=== PATIENT | male | born 1985 | race Caucasian/White ===

== ENCOUNTER 2019-03-13 15:03 | Inpatient (IN) | payer OTHER ==
[2019-03-13 16:35] VITALS: BMI 22.4
--- NOTE | 2019-03-13 18:00 | HP ---
COWS - Scale Resting Pulse: 2= NM 101-120 Sweatin= Chills/Flushing Restless Observation: 3= Extraneous Movement Pupil Size: 0= Normal to Room Light Bone or Joint Aches: 0= None Runny Nose/ Eye Tearin= Nasal Congestion GI Upset > 30mins: 1= Stomach Cramp Tremor Observation: 0= None Yawning Observation: 1= 1-2x During Session Anxiety or Irritability: 2=Irritable/Anxious Goose Flesh Skin: 3=Piloerection COWS Score: 14 CIWA Score Nausea/Vomitin-Mild Nausea/No Vomiting Muscle Tremors: None Anxiety: 2 Agitation: 2 Paroxysmal Sweats: 1-Minimal Palms Moist Orientation: 0-Oriented Tacttile Disturbances: 0-None Auditory Disturbances: 0-None Visual Disturbances: 0-None Headache: 7-Extremely Severe CIWA-Ar Total Score: 13 - Admission Criteria [facility]ASAS Guidelines: Admission for Medically Managed Detox: Requires at least one of the followin. CIWA greater than 12 2. Seizures within the past 24 hours 3. Delirium tremens within the past 24 hours 4. Hallucinations within the past 24 hours 5. Acute intervention needed for co occurring medical disorder 6. Acute intervention needed for co occurring psychiatric disorder 7. Severe withdrawal that cannot be handled at a lower level of care (continued vomiting, continued diarrhea, abnormal vital signs) requiring intravenous medication and/or fluids 8. Patient presents the following: None of the above (pt overdosed on heroin requiring narcan about 12 hours ago.) Admission Criteria Met: Admission criteria not met Admission ROS [facility] Chief Complaint: heroin detox 33 yo with no medical problems and on no meds, long h/o of heroin use- went into detox last year and since then using heroin occasionally, states that yesterday he used 2 bags of IV heroin- found by father with needle in his arm- narcan administered by EMS and went to [facility] ER. Pt was referred here for further management. Heroin- 2 bags yesterday, IV. Pt states does not use heroin regularly alcohol- 2-3 beers 16oz a day, no h/o seizures, DT's IStop- no meds Utox: MOP Allergies/Adverse Reactions: Allergies Allergy/AdvReac Type Severity Reaction Status Date / Time No Known Drug Allergies Allergy Verified 03/13/19 16:25 - Ebola screening Have you traveled outside of the country in the last 21 days: No Have you had contact with anyone from an Ebola affected area: No Patient History - Patient Medical History Hx Anemia: Yes - Patient Surgical History Past Surgical History: No - PPD History Previous Implant?: No Documented Results: Negative w/o proof - Smoking Cessation Smoking history: Current every day smoker Have you smoked in the past 12 months: Yes Aproximately how many cigarettes per day: 10 Hx Chewing Tobacco Use: No Initiated information on smoking cessation: Yes 'Breaking Loose' booklet given: 03/13/19 - Substance & Tx. History Hx Alcohol Use: Yes Hx Substance Use: Yes Substance Use Type: Heroin - Substances abused Alcohol Other (specify): Beer, Rum Substance route: Oral Frequency: 3-6 times per week Amount used: Beer 3 bottles, Rum 2 shots Age of first use: 13 Date of last use: 03/12/19 Family Disease History - Family Disease History Family Disease History: Other: Mother (crack cocaine addiction) Admission Physical Exam S - Vital Signs Vital Signs: Vital Signs - 24 hr 03/13/19 16:27 Temperature 99.9 F H Pulse Rate 112 H Respiratory 18 Rate Blood Pressure 134/95 - Physical General Appearance: Yes: Within Normal Limits HEENTM: Yes: Within Normal Limits Respiratory: Yes: Within Normal Limits Neck: Yes: Within Normal Limits Cardiology: Yes: Within Normal Limits, Regular Rate Abdominal: Yes: Within Normal Limits Genitourinary: Yes: Within Normal Limits Back: Yes: Within Normal Limits Musculoskeletal: Yes: Within Normal Limits Extremities: Yes: Within Normal Limits Neurological: Yes: Within Normal Limits Integumentary: Yes: Within Normal Limits, Track Sarkar (3 fresh needle sticks) Lymphatic: Yes: Within Normal Limits - Diagnostic (1) Opioid use disorder Current Visit: Yes Status: Acute (2) Nicotine use disorder Current Visit: Yes Status: Acute Urine Drug Screen - Test Device Lot number: [id number] Expiration date: 10/11/20 - Control Is test valid?: Yes - Results Drug screen NEGATIVE: No Urine drug screen results: MOP-Opiates Inpatient Rehab Admission - Rehab Decision to Admit Inpatient rehab admission?: No
[2019-03-13] MEDS ORDERED: hydrOXYzine PAMOATE 25 MG CAPSULE (FP) PO PRN (18:10)
[2019-03-13] MEDS ORDERED: MAGNESIUM HYDROX 2400MG/30ML ORAL SUSPENSION 30 ML CUP PO PRN (18:10)
[2019-03-13] MEDS ORDERED: METHOCARBAMOL 500 MG TABLET PO PRN (18:10)
[2019-03-13] MEDS ORDERED: MENTHOL/PHENOL 1 EACH UD MM PRN (18:10)
[2019-03-13] MEDS ORDERED: MAGNESIUM CITRATE 300 ML BOTTLE PO PRN (18:10)
[2019-03-13] MEDS ORDERED: MAG HYDROX/AL HYDROX/SIMETH 30 ML UNIT-DOSE CUP PO PRN (18:10)
[2019-03-13] MEDS ORDERED: NICOTINE POLACRILEX 4 MG GUM BUC PRN (18:10)
[2019-03-13] MEDS ORDERED: MELATONIN 5 MG TABLETS PO PRN (18:10)
[2019-03-13] MEDS ORDERED: ACETAMINOPHEN 325 MG TABLET (FP) PO PRN ×2 (18:10)
[2019-03-13] MEDS ORDERED: BISMUTH SUBSALICYLATE 524 MG/30 ML UD PO PRN (18:10)
[2019-03-13] MEDS ORDERED: clonazePAM 0.5 MG TABLET PO PRN (18:12)
[2019-03-13] MEDS ORDERED: cloNIDine HCL 0.1 MG TABLET PO PRN (18:12)
[2019-03-13] MEDS ORDERED: PERMETHRIN 5% TOPICAL CREAM 60 GM TUBE TP ONE (18:51)
[2019-03-13] MEDS: chlordiazePOXIDE HCL 10 MG CAPSULE PO PRN (19:40)
[2019-03-13] MEDS: hydrOXYzine HCL 25 MG TABLET (FP) PO PRN (22:09)
[2019-03-13] MEDS: chlordiazePOXIDE HCL 25 MG CAPSULE PO SCH (22:10)
[2019-03-13] MEDS: THIAMINE HCL 100 MG TABLET (FP) PO SCH (22:10)
[2019-03-13 22:58] LABS: EPI CELLS 2.6 /HPF (0-5/HPF); URINE APPEARANCE CLEAR; URINE BACTERIA 3.9 /hpf (NEGATIVE); URINE BILIRUBIN NEGATIVE (NEGATIVE); URINE CASTS 41 /lpf (0-8); URINE COLOR YELLOW; URINE GLUCOSE (UA) 2+ (NEGATIVE); URINE KETONE NEGATIVE (NEGATIVE); URINE LEUK ESTERASE NEGATIVE (NEGATIVE); URINE NITRITE NEGATIVE (NEGATIVE); URINE PROTEIN 1+ (NEGATIVE); URINE RBC 1 /hpf (0-4); URINE UROBILINOGEN 0.2 mg/dL (0.2-1.0); URINE WBC 4 /hpf (0-5)
[2019-03-13] MEDS ORDERED: METHADONE HCL 10 MG TABLET (FOR DETOX USE ONLY) PO ONE (23:00)
[2019-03-14] MEDS: chlordiazePOXIDE HCL 25 MG CAPSULE PO SCH ×2 (05:37→13:51)
[2019-03-14] MEDS ORDERED: METHADONE HCL 5 MG TABLET (FOR DETOX USE ONLY) PO ONE (10:00)
[2019-03-14 10:13] LABS: HEMATOCRIT 36.5 % (35.4-49); HEMOGLOBIN 11.6 GM/dL (11.7-16.9); MCH 21.2 pg (25.7-33.7); MCHC 31.8 g/dl (32.0-35.9); MEAN CELL VOLUME 66.6 fl (80-96); MEAN PLT VOLUME 9.1 fl (7.5-11.1); PLATELET COUNT 217 K/MM3 (134-434); RBC 5.48 M/mm3 (4.00-5.60)
[2019-03-14] MEDS: PRENATAL VITAMINS W/ FOLIC ACID TABLET (FP) PO SCH (10:26)
[2019-03-14] MEDS: chlordiazePOXIDE HCL 10 MG CAPSULE PO PRN (10:26)
[2019-03-14 10:29] LABS: ALBUMIN 3.5 g/dl (3.4-5.0); ALK PHOS 59 U/L (45-117); ANION GAP 4 MMOL/L (8-16); BILIRUBIN,TOTAL 0.6 mg/dL (0.2-1); BLOOD UREA NITROGEN 15 mg/dL (7-18); CHLORIDE 102 mmol/L (98-107); CO2 32 mmol/L (21-32); CREATININE 0.7 mg/dL (0.55-1.3); GLUCOSE,RANDOM 95 mg/dL (74-106); POTASSIUM 3.6 mmol/L (3.5-5.1); SGOT/AST 56 U/L (15-37); SGPT/ALT 90 U/L (13-61); SODIUM 137 mmol/L (136-145); TOT PROT 6.6 g/dl (6.4-8.2)
--- NOTE | 2019-03-14 15:05 | PN ---
[facility] CIWA - CIWA Score Nausea/Vomitin-Mild Nausea/No Vomiting Muscle Tremors: 1-None Visible, but [place] Anxiety: 1-Mildly Anxious Agitation: 1-Slight > Activity Paroxysmal Sweats: 1-Minimal Palms Moist Orientation: 0-Oriented Tacttile Disturbances: 0-None Auditory Disturbances: 0-None Visual Disturbances: 0-None Headache: 0-None Present CIWA-Ar Total Score: 5 S COWS - Scale Resting Pulse: 1= [place] 81-100 Sweatin= No chills or Flushing Restless Observation: 1= Difficult to Sit Still Pupil Size: 1= Pupils >than Normal Bone or Joint Aches: 1= Mild Discomfort Runny Nose/ Eye Tearin= Nasal Congestion GI Upset > 30mins: 0= None Tremor Observation of Outstretched Hands: 0= None Yawning Observation: 0= None Anxiety or Irritability: 1=Feels Anxious/Irritable Goose Flesh Skin: 0=Smooth Skin COWS Score: 6 S Progress Note (SOAP) Subjective: pt states doing well on alcohol/heroin detox protocol day #2, s/p treatment for scabies O: Vital Signs - 24 hr 03/13/19 03/13/19 03/14/19 16:27 21:36 00:46 Temperature 99.9 F H 99.5 F Pulse Rate 112 H 105 H Respiratory 18 16 18 Rate Blood Pressure 134/95 120/89 03/14/19 03/14/19 03/14/19 03:39 06:37 09:20 Temperature 98.6 F 97.3 F L Pulse Rate 75 89 Respiratory 18 18 18 Rate Blood Pressure 124/72 130/86 03/14/19 13:40 Temperature 96.4 F L Pulse Rate 89 Respiratory 18 Rate Blood Pressure 117/70 Laboratory Tests 03/13/19 03/14/19 03/14/19 21:20 07:00 07:00 WBC 11.0 H RBC 5.48 Hgb 11.6 L Hct 36.5 MCV 66.6 L MCH 21.2 L MCHC 31.8 L RDW 17.0 H Plt Count 217 MPV 9.1 Sodium 137 Potassium 3.6 Chloride 102 Carbon Dioxide 32 Anion Gap 4 L BUN 15 Creatinine 0.7 Creat Clearance w eGFR 129.88 Random Glucose 95 Calcium 9.0 Total Bilirubin 0.6 AST 56 H ALT 90 H Alkaline Phosphatase 59 Total Protein 6.6 Albumin 3.5 Urine Color Yellow Urine Appearance Clear Urine pH 5.0 Ur Specific [place] 1.020 Urine Protein 1+ H Urine Glucose (UA) 2+ H Urine Ketones Negative Urine Blood Negative Urine Nitrite Negative Urine Bilirubin Negative Urine Urobilinogen 0.2 Ur Leukocyte Esterase Negative Urine WBC (Auto) 4 Urine RBC (Auto) 1 Urine Casts (Auto) 41 U Pathogenic Cast Auto None U Epithel Cells (Auto) 2.6 U Sm Round Cell (Auto) No Result Required. Urine Crystals (Auto) No Result Required. Urine Bacteria (Auto) 3.9 RPR Titer 03/14/19 07:00 WBC RBC Hgb Hct MCV MCH MCHC RDW Plt Count MPV Sodium Potassium Chloride Carbon Dioxide Anion Gap BUN Creatinine Creat Clearance w eGFR Random Glucose Calcium Total Bilirubin AST ALT Alkaline Phosphatase Total Protein Albumin Urine Color Urine Appearance Urine pH Ur Specific [place] Urine Protein Urine Glucose (UA) Urine Ketones Urine Blood Urine Nitrite Urine Bilirubin Urine Urobilinogen Ur Leukocyte Esterase Urine WBC (Auto) Urine RBC (Auto) Urine Casts (Auto) U Pathogenic Cast Auto U Epithel Cells (Auto) U Sm Round Cell (Auto) Urine Crystals (Auto) Urine Bacteria (Auto) RPR Titer Nonreactive mild anemia, microcytic, wide RDW a/p: continue alcohol and heroin detox protocols, pt doing well today
[2019-03-14] MEDS: THIAMINE HCL 100 MG TABLET (FP) PO SCH (22:16)
[2019-03-14] MEDS: hydrOXYzine HCL 25 MG TABLET (FP) PO PRN (22:16)
[2019-03-14] MEDS: chlordiazePOXIDE 5 MG CAPSULE PO SCH (22:16)
[2019-03-14] MEDS: IBUPROFEN 400 MG TABLET (FP) PO PRN (22:17)
[2019-03-15] MEDS: chlordiazePOXIDE 5 MG CAPSULE PO SCH ×2 (05:54→14:09)
[2019-03-15] MEDS ORDERED: METHADONE HCL 10 MG TABLET (FOR DETOX USE ONLY) PO ONE (10:00)
[2019-03-15] MEDS: PRENATAL VITAMINS W/ FOLIC ACID TABLET (FP) PO SCH (10:29)
--- NOTE | 2019-03-15 12:51 | PN ---
[facility] CIWA - CIWA Score Nausea/Vomitin-No Nausea/No Vomiting Muscle Tremors: 1-None Visible, but [place] Anxiety: 4-Mod. Anxious/Guarded Agitation: 2 Paroxysmal Sweats: 1-Minimal Palms Moist Orientation: 3-Disoriented Date>2 days Tacttile Disturbances: 0-None Auditory Disturbances: 0-None Visual Disturbances: 0-None Headache: 0-None Present CIWA-Ar Total Score: 11 S COWS - Scale Resting Pulse: 0= [place] 80 or Below Sweatin= Chills/Flushing Restless Observation: 0= Sits Still Pupil Size: 0= Normal to Room Light Bone or Joint Aches: 4=Acute Joint/Muscle Pain Runny Nose/ Eye Tearin= None GI Upset > 30mins: 0= None Tremor Observation of Outstretched Hands: 2= Slight Tremor Visible Yawning Observation: 0= None Anxiety or Irritability: 2=Irritable/Anxious Goose Flesh Skin: 0=Smooth Skin COWS Score: 9 [facility] Progress Note (SOAP) Subjective: ANXIETY. Objective: 03/15/19 12:49 Vital Signs 03/15/19 03/15/19 06:15 09:44 Temperature 97.9 F 98.4 F Pulse Rate 67 77 Respiratory 18 18 Rate Blood Pressure 147/81 141/88 Laboratory Tests 03/13/19 03/14/19 03/14/19 21:20 07:00 07:00 WBC 11.0 H RBC 5.48 Hgb 11.6 L Hct 36.5 MCV 66.6 L MCH 21.2 L MCHC 31.8 L RDW 17.0 H Plt Count 217 MPV 9.1 Sodium 137 Potassium 3.6 Chloride 102 Carbon Dioxide 32 Anion Gap 4 L BUN 15 Creatinine 0.7 Creat Clearance w eGFR 129.88 Random Glucose 95 Calcium 9.0 Total Bilirubin 0.6 AST 56 H ALT 90 H Alkaline Phosphatase 59 Total Protein 6.6 Albumin 3.5 Urine Color Yellow Urine Appearance Clear Urine pH 5.0 Ur Specific [place] 1.020 Urine Protein 1+ H Urine Glucose (UA) 2+ H Urine Ketones Negative Urine Blood Negative Urine Nitrite Negative Urine Bilirubin Negative Urine Urobilinogen 0.2 Ur Leukocyte Esterase Negative Urine WBC (Auto) 4 Urine RBC (Auto) 1 Urine Casts (Auto) 41 U Pathogenic Cast Auto None U Epithel Cells (Auto) 2.6 U Sm Round Cell (Auto) No Result Required. Urine Crystals (Auto) No Result Required. Urine Bacteria (Auto) 3.9 RPR Titer 03/14/19 07:00 WBC RBC Hgb Hct MCV MCH MCHC RDW Plt Count MPV Sodium Potassium Chloride Carbon Dioxide Anion Gap BUN Creatinine Creat Clearance w eGFR Random Glucose Calcium Total Bilirubin AST ALT Alkaline Phosphatase Total Protein Albumin Urine Color Urine Appearance Urine pH Ur Specific [place] Urine Protein Urine Glucose (UA) Urine Ketones Urine Blood Urine Nitrite Urine Bilirubin Urine Urobilinogen Ur Leukocyte Esterase Urine WBC (Auto) Urine RBC (Auto) Urine Casts (Auto) U Pathogenic Cast Auto U Epithel Cells (Auto) U Sm Round Cell (Auto) Urine Crystals (Auto) Urine Bacteria (Auto) RPR Titer Nonreactive Assessment: 03/15/19 12:50 WITHDRAWAL SX Plan: CONTINUE DETOX
[2019-03-15] MEDS: IBUPROFEN 400 MG TABLET (FP) PO PRN (19:41)
[2019-03-15] MEDS ORDERED: chlordiazePOXIDE HCL 10 MG CAPSULE PO PRN (21:00)
[2019-03-15] MEDS: chlordiazePOXIDE HCL 10 MG CAPSULE PO SCH (22:11)
[2019-03-15] MEDS: THIAMINE HCL 100 MG TABLET (FP) PO SCH (22:12)
[2019-03-16] MEDS: chlordiazePOXIDE HCL 10 MG CAPSULE PO SCH (05:54)
[2019-03-16] MEDS ORDERED: METHADONE HCL 5 MG TABLET (FOR DETOX USE ONLY) PO ONE (06:00)
[2019-03-16] MEDS: IBUPROFEN 400 MG TABLET (FP) PO PRN (07:31)
[2019-03-16 09:21] VITALS: BP 134/86; PULSE 81; TEMP 96.5
--- NOTE | 2019-03-16 15:33 | DS ---
[facility] Detox Discharge Summary Admission Date: 03/13/19 Discharge Date: 03/16/19 - History Present History: Alcohol Dependence, Opioid Dependence Additional Comments: 33 years old male admitted on 03/13/19 for alcohol and opiate withdrawal stabilization completed detox regimen aftercare medication assisted treatment maintenance program Pertinent Past History: bring in medication list and lab report to follow up appointment - Physical Exam Results Vital Signs: Vital Signs Temperature 96.5 F L 03/16/19 09:21 Pulse Rate 81 03/16/19 09:21 Respiratory Rate 18 03/16/19 09:21 Blood Pressure 134/86 03/16/19 09:21 O2 Sat by Pulse Oximetry (%) Pertinent Admission Physical Exam Findings: alcohol and opiate withdrawal sx Laboratory Last Values WBC 11.0 K/mm3 (4.0-10.0) H 03/14/19 07:00 RBC 5.48 M/mm3 (4.00-5.60) 03/14/19 07:00 Hgb 11.6 GM/dL (11.7-16.9) L 03/14/19 07:00 Hct 36.5 % (35.4-49) 03/14/19 07:00 MCV 66.6 fl (80-96) L 03/14/19 07:00 MCH 21.2 pg (25.7-33.7) L 03/14/19 07:00 MCHC 31.8 g/dl (32.0-35.9) L 03/14/19 07:00 RDW 17.0 % (11.9-15.9) H 03/14/19 07:00 Plt Count 217 K/MM3 (134-434) 03/14/19 07:00 MPV 9.1 fl (7.5-11.1) 03/14/19 07:00 Sodium 137 mmol/L (136-145) 03/14/19 07:00 Potassium 3.6 mmol/L (3.5-5.1) 03/14/19 07:00 Chloride 102 mmol/L (98-107) 03/14/19 07:00 Carbon Dioxide 32 mmol/L (21-32) 03/14/19 07:00 Anion Gap 4 MMOL/L (8-16) L 03/14/19 07:00 BUN 15 mg/dL (7-18) 03/14/19 07:00 Creatinine 0.7 mg/dL (0.55-1.3) 03/14/19 07:00 Creat Clearance w eGFR 129.88 (>60) 03/14/19 07:00 Random Glucose 95 mg/dL (74-106) 03/14/19 07:00 Calcium 9.0 mg/dL (8.5-10.1) 03/14/19 07:00 Total Bilirubin 0.6 mg/dL (0.2-1) 03/14/19 07:00 AST 56 U/L (15-37) H 03/14/19 07:00 ALT 90 U/L (13-61) H 03/14/19 07:00 Alkaline Phosphatase 59 U/L (45-117) 03/14/19 07:00 Total Protein 6.6 g/dl (6.4-8.2) 03/14/19 07:00 Albumin 3.5 g/dl (3.4-5.0) 03/14/19 07:00 Urine Color Yellow 03/13/19 21:20 Urine Appearance Clear 03/13/19 21:20 Urine pH 5.0 (5.0-8.0) 03/13/19 21:20 Ur Specific [place] 1.020 (1.010-1.035) 03/13/19 21:20 Urine Protein 1+ (NEGATIVE) H 03/13/19 21:20 Urine Glucose (UA) 2+ (NEGATIVE) H 03/13/19 21:20 Urine Ketones Negative (NEGATIVE) 03/13/19 21:20 Urine Blood Negative (NEGATIVE) 03/13/19 21:20 Urine Nitrite Negative (NEGATIVE) 03/13/19 21:20 Urine Bilirubin Negative (NEGATIVE) 03/13/19 21:20 Urine Urobilinogen 0.2 mg/dL (0.2-1.0) 03/13/19 21:20 Ur Leukocyte Esterase Negative (NEGATIVE) 03/13/19 21:20 Urine WBC (Auto) 4 /hpf (0-5) 03/13/19 21:20 Urine RBC (Auto) 1 /hpf (0-4) 03/13/19 21:20 Urine Casts (Auto) 41 /lpf (0-8) 03/13/19 21:20 U Pathogenic Cast Auto None /lpf (NEGATIVE) 03/13/19 21:20 U Epithel Cells (Auto) 2.6 /HPF (0-5/HPF) 03/13/19 21:20 U Sm Round Cell (Auto) No Result Required. 03/13/19 21:20 Urine Crystals (Auto) No Result Required. 03/13/19 21:20 Urine Bacteria (Auto) 3.9 /hpf (NEGATIVE) 03/13/19 21:20 RPR Titer Nonreactive (NONREACTIVE) 03/14/19 07:00 lab noted - Treatment Hospital Course: Detox Protocol Followed, Detoxed Safely, Responded well, Discharged Condition Good, Rehab Referral Accepted Patient has Accepted a Rehab Referral to: medication assisted maintenance treatment program - Medication Discharge Medications: Ambulatory Orders NK [No Known Home Medication] 03/13/19 - Diagnosis (1) Nicotine dependence Status: Acute Qualifiers: Nicotine product type: cigarettes Substance use status: in withdrawal Qualified Code(s): F17.213 - Nicotine dependence, cigarettes, with withdrawal (2) Alcohol dependence with uncomplicated withdrawal Status: Acute (3) Uncomplicated opioid dependence Status: Acute - AMA Did Patient Leave Against Medical Advice: No
== END 2019-03-16 09:46 | disposition home or self-care (01) | DRG 773 ==
LOC: YASAS 15:03 → Y3N 18:20
PROVIDERS: ADMIT Surgery; ATTEND Surgery
PROC: HZ2ZZZZ Detoxification Services for Substance Abuse Treatment (ICD-10-PCS; principal; 2019-03-13)
DX: F10.230 Alcohol dependence with withdrawal, uncomplicated (principal); F11.23 Opioid dependence with withdrawal; F17.213 Nicotine dependence, cigarettes, with withdrawal; D50.9 Iron deficiency anemia, unspecified
CPT/HCPCS: 36415; 80053; 81003; 85027; 86593